=== PATIENT | female | born 1940 | race Caucasian/White ===

== ENCOUNTER 2019-06-07 16:46 | Inpatient (IN) | payer MEDICARE ==
[~2019-06-07] VITALS: Ht 172.7 cm; Wt 62.8 kg
[2019-06-07] MEDS ORDERED: METHYL SALICYLATE/MENTHOL TOPICAL OINTMENT 57GM TUBE. TP PRN (17:00)
[2019-06-07] MEDS ORDERED: MAG HYDROX/AL HYDROX/SIMETH 30 ML ORAL.SUSP PO PRN (17:00)
[2019-06-07] MEDS ORDERED: MAGNESIUM HYDROXIDE 2,400 MG/30 ML ORAL.SUSP. PO PRN ×2 (17:00→17:30)
[2019-06-07] MEDS ORDERED: ACETAMINOPHEN 325 MG TABLET PO PRN (17:00)
[2019-06-07] MEDS ORDERED: MINERAL OIL TP PRN (17:30)
[2019-06-07] MEDS ORDERED: HYDROPHIL PETROLAT TP PRN (17:30)
[2019-06-07] MEDS ORDERED: CALCIUM POLYCARBOPHIL 625 MG TABLET PO PRN (17:30)
[2019-06-07] MEDS ORDERED: DIMENHYDRINATE 50 MG PO PRN (17:30)
[2019-06-07] MEDS ORDERED: DOCU-109 PO (17:33)
[2019-06-07] MEDS ORDERED: DIME50TA10 PO (17:33)
[2019-06-07] MEDS ORDERED: MECL25TA3 PO (17:33)
[2019-06-07] MEDS ORDERED: SERT25TA PO (17:33)
[2019-06-07] MEDS ORDERED: ACET-704 PO (17:33)
[2019-06-07] MEDS ORDERED: NAPR-634 PO (17:33)
[2019-06-07] MEDS ORDERED: LORA10TA3 PO (17:33)
[2019-06-07] MEDS ORDERED: ACET325T9 PO (17:33)
[2019-06-07] MEDS ORDERED: MELA3TAB56 PO (17:33)
[2019-06-07] MEDS ORDERED: MAGN400O7 PO (17:33)
[2019-06-07] MEDS ORDERED: CYAN10002 IJ (17:33)
[2019-06-07] MEDS ORDERED: LISI-334 PO (17:33)
[2019-06-07] MEDS ORDERED: CALC625T61 PO (17:33)
[2019-06-07] MEDS ORDERED: MINE50OI TP (17:37)
[2019-06-07 17:48] VITALS: BP 124/77
[2019-06-07] MEDS ORDERED: MECLIZINE 12.5 MG TABLET. PO PRN (18:15)
[2019-06-07] MEDS ORDERED: NAPROXEN 250 MG TABLET PO PRN (18:15)
[2019-06-07] MEDS: ACETAMINOPHEN/CODEINE 300/30MG TABLET PO PRN (18:16)
--- NOTE | 2019-06-07 19:55 | PDOC ---
Exam Note: Michele Note: Please also refer to the separate dictated note~for this date of service dictated separately. Discussed the patient with Nursing staff reviewed the chart.~Reviewed interim history and current functioning. Reviewed vital signs,~Labs/ Radiology~and current medications noted below. Continue current treatment with the changes noted in the dictated addendum note Assessment: Vital Signs/I&O: Vital Signs Date Time Temp Pulse Resp B/P (MAP) Pulse Ox O2 Delivery O2 Flow Rate FiO2 06/07/19 19:16 91 Room Air 06/07/19 18:16 16 06/07/19 17:48 97.6 81 124/77 (93) Current Medications: Meds: Current Medications Medications (Trade) Dose Ordered Sig/Alexa Route PRN Reason Start Time Stop Time Status Last Admin Dose Admin Acetaminophen/ Codeine Phosphate (Tylenol #3) 1 tab PRN Q6HRS PRN PO extreme pain 06/07/19 17:30 06/07/19 18:16 I have reviewed the current psychotropics carefully including drug interactions. Risk benefit ratio favors no change other than as noted in my dictated progress note. MERY PHAM MD Jun 07, 2019 19:55
[2019-06-07] MEDS: SERTRALINE 25 MG TABLET. PO SCH (20:49)
[2019-06-08 06:02] VITALS: BP 135/81
[2019-06-08 06:31] LABS: BASO # 0.1 x10^3/uL (0.0-0.2); BASO % 2 % (0-3); EOS # 0.1 x10^3/uL (0.0-0.7); EOS % 4 % (0-3); HEMATOCRIT 39.2 % (36.0-47.0); HEMOGLOBIN 12.8 g/dL (12.0-15.5); LYMPH # 1.3 x10^3/uL (1.0-4.8); LYMPH % 33 % (24-48); MEAN CORPUSCULAR HEMOGLOBIN 28 pg (25-35); MEAN CORPUSCULAR HGB CONC 33 g/dL (31-37); MEAN CORPUSCULAR VOLUME 86 fL (79-100); MONO # 0.3 x10^3/uL (0.0-1.1); MONO % 9 % (0-9); NEUT # 2.1 x10^3uL (1.8-7.7); NEUT % 53 % (31-73); PLATELET COUNT 177 x10^3/uL (140-400); RED BLOOD COUNT 4.57 x10^6/uL (3.50-5.40); RED CELL DISTRIBUTION WIDTH 17.9 % (11.5-14.5); WHITE BLOOD COUNT 3.9 x10^3/uL (4.0-11.0)
[2019-06-08 06:45] LABS: ALBUMIN 2.9 g/dL (3.4-5.0); CALCIUM 8.8 mg/dL (8.5-10.1); CREATININE 0.6 mg/dL (0.6-1.0); GFR 96.2; POTASSIUM 4.2 mmol/L (3.5-5.1); TOTAL BILIRUBIN 0.5 mg/dL (0.2-1.0); TOTAL PROTEIN 5.8 g/dL (6.4-8.2)
[2019-06-08] MEDS: DOCUSATE SODIUM 100 MG CAPSULE PO SCH (07:52)
[2019-06-08] MEDS: LISINOPRIL 20 MG TABLET PO SCH (07:52)
[2019-06-08] MEDS: CETIRIZINE HCL 10 MG TABLET PO SCH (07:52)
[2019-06-08] MEDS: ACETAMINOPHEN/CODEINE 300/30MG TABLET PO PRN (11:32)
[2019-06-08 16:04] VITALS: BP 97/67
[2019-06-08 17:07] LABS: THYROXINE 6.5 ug/dL (4.5-12.0)
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
[2019-06-08 19:32] LABS: THYROID STIM HORMONE (TSH) 1.432 uIU/mL (0.358-3.740)
--- NOTE | 2019-06-08 20:21 | PDOC ---
Exam Note: Michele Note: Please also refer to the separate dictated note~for this date of service dictated separately.~Patient seen individually. Discussed the patient with Nursing staff reviewed the chart.~Reviewed interim history and current functioning. Reviewed vital signs,~Labs/ Radiology~and current medications noted below. Continue current treatment with the changes noted in the dictated addendum note Assessment: Vital Signs/I&O: Vital Signs Date Time Temp Pulse Resp B/P (MAP) Pulse Ox O2 Delivery O2 Flow Rate FiO2 06/08/19 16:04 98.8 81 18 97/67 (77) 95 06/07/19 19:16 Room Air I & O 06/07/19 06/07/19 06/08/19 15:00 23:00 07:00 Intake Total 360 ml Balance 360 ml Labs: Laboratory Tests Test 06/08/19 06:22 White Blood Count 3.9 x10^3/uL (4.0-11.0) L Red Blood Count 4.57 x10^6/uL (3.50-5.40) Hemoglobin 12.8 g/dL (12.0-15.5) Hematocrit 39.2 % (36.0-47.0) Mean Corpuscular Volume 86 fL (79-100) Mean Corpuscular Hemoglobin 28 pg (25-35) Mean Corpuscular Hemoglobin Concent 33 g/dL (31-37) Red Cell Distribution Width 17.9 % (11.5-14.5) H Platelet Count 177 x10^3/uL (140-400) Neutrophils (%) (Auto) 53 % (31-73) Lymphocytes (%) (Auto) 33 % (24-48) Monocytes (%) (Auto) 9 % (0-9) Eosinophils (%) (Auto) 4 % (0-3) H Basophils (%) (Auto) 2 % (0-3) Neutrophils # (Auto) 2.1 x10^3uL (1.8-7.7) Lymphocytes # (Auto) 1.3 x10^3/uL (1.0-4.8) Monocytes # (Auto) 0.3 x10^3/uL (0.0-1.1) Eosinophils # (Auto) 0.1 x10^3/uL (0.0-0.7) Basophils # (Auto) 0.1 x10^3/uL (0.0-0.2) Sodium Level 138 mmol/L (136-145) Potassium Level 4.2 mmol/L (3.5-5.1) Chloride Level 103 mmol/L (98-107) Carbon Dioxide Level 28 mmol/L (21-32) Anion Gap 7 (6-14) Blood Urea Nitrogen 11 mg/dL (7-20) Creatinine 0.6 mg/dL (0.6-1.0) Estimated GFR (Cockcroft-Gault) 96.2 BUN/Creatinine Ratio 18 (6-20) Glucose Level 95 mg/dL (70-99) Calcium Level 8.8 mg/dL (8.5-10.1) Magnesium Level 2.0 mg/dL (1.8-2.4) Iron Level 86 ug/dL (50-170) Total Iron Binding Capacity 233 ug/dL (250-450) L Iron Saturation 37 % (15-34) H Total Bilirubin 0.5 mg/dL (0.2-1.0) Aspartate Amino Transferase (AST) 13 U/L (15-37) L Alanine Aminotransferase (ALT) 13 U/L (14-59) L Alkaline Phosphatase 52 U/L (46-116) Creatine Kinase < 15 U/L (26-192) L Total Protein 5.8 g/dL (6.4-8.2) L Albumin 2.9 g/dL (3.4-5.0) L Albumin/Globulin Ratio 1.0 (1.0-1.7) Triglycerides Level 49 mg/dL (0-150) Cholesterol Level 188 mg/dL (0-200) LDL Cholesterol, Calculated 117 mg/dL (0-100) H VLDL Cholesterol, Calculated 9 mg/dL (0-40) Non-HDL Cholesterol Calculated 126 mg/dL (0-129) HDL Cholesterol 62 mg/dL (40-60) H Cholesterol/HDL Ratio 3.0 Vitamin B12 Level 414 pg/mL (247-911) 25-Hydroxy Vitamin D Total 30.5 ng/mL (30-100) Thyroid Stimulating Hormone (TSH) 1.432 uIU/mL (0.358-3.740) Thyroxine (T4) 6.5 ug/dL (4.5-12.0) Total Triiodothyronine (TT3) 86 ng/dL (71-180) Treponema pallidum Antibody Nonreactive (Nonreactive) Current Medications: Meds: Current Medications Medications (Trade) Dose Ordered Sig/Alexa Route PRN Reason Start Time Stop Time Status Last Admin Dose Admin Docusate Sodium (Colace) 100 mg DAILY PO 06/08/19 09:00 06/08/19 07:52 Lisinopril (Prinivil) 20 mg DAILY PO 06/08/19 09:00 06/08/19 07:52 Sertraline HCl (Zoloft) 25 mg QHS PO 06/07/19 21:00 06/07/19 20:49 Cetirizine HCl (ZyrTEC) 10 mg DAILY PO 06/08/19 09:00 06/08/19 07:52 I have reviewed the current psychotropics carefully including drug interactions. Risk benefit ratio favors no change other than as noted in my dictated progress note. Diagnosis: Problems: (1) Major depressive disorder with psychotic features (2) Mild cognitive impairment (3) Anxiety disorder, unspecified (4) Impulse control disorder, unspecified MERY PHAM MD Jun 08, 2019 20:21
[2019-06-08] MEDS: SERTRALINE 25 MG TABLET. PO SCH (20:30)
--- NOTE | 2019-06-09 00:11 | PN ---
DATE: 06/08/2019 PSYCHIATRIC PROGRESS NOTE This note covers elements not covered in my initial note 06/08/2019. SUBJECTIVE: I met with the patient in the evening and staffed at a treatment team meeting with the entire team in the morning. The patient slept for 8-1/4 hours previous night. She has been withdrawn, isolative, spends much time in her room. Received Tylenol No. 3 at 11:30 a.m. and played "possum" according to nursing staff all day. Clarification on her drug allergies as noted in my initial evaluation and none of the allergies confirmed from his psychotropic standpoint. REVIEW OF SYSTEMS: Positive for tiredness. She is not very interactive, refusing to talk to me, a little different than yesterday. No CV, , pulmonary, eye system symptoms on review. MENTAL STATUS EXAM: Oriented to herself and situation. Speech has some latency, coherent, often responses monosyllabic. Abstraction fair, computation impaired, language function intact. Mood and affect remains depressed. LABORATORY DATA: Reviewed. IMPRESSION: Major depressive disorder with psychotic features; anxiety disorder, unspecified; mild cognitive impairment, rule out bipolar disorder, depressed. PLAN: Continue to observe baseline, then adjust psychotropics as clinically indicated. Rest unchanged for now including melatonin __. MAN Nohemy PHAM MD DR: LARY/janeth JOB#: [id number] / [id number]
[2019-06-09 06:05] VITALS: BP 163/97
[2019-06-09] MEDS: CETIRIZINE HCL 10 MG TABLET PO SCH (09:59)
[2019-06-09] MEDS: LISINOPRIL 20 MG TABLET PO SCH (09:59)
[2019-06-09] MEDS: DOCUSATE SODIUM 100 MG CAPSULE PO SCH (09:59)
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
[2019-06-09 16:21] VITALS: BP 112/73
[2019-06-09] MEDS: SERTRALINE 25 MG TABLET. PO SCH (20:09)
--- NOTE | 2019-06-09 20:36 | PDOC ---
Exam Note: Michele Note: Please also refer to the separate dictated note~for this date of service dictated separately.~Patient seen individually. Discussed the patient with Nursing staff reviewed the chart.~Reviewed interim history and current functioning. Reviewed vital signs,~Labs/ Radiology~and current medications noted below. Continue current treatment with the changes noted in the dictated addendum note Assessment: Vital Signs/I&O: Vital Signs Date Time Temp Pulse Resp B/P (MAP) Pulse Ox O2 Delivery O2 Flow Rate FiO2 06/09/19 16:21 98.4 74 16 112/73 (86) 95 Room Air I & O 06/08/19 06/08/19 06/09/19 15:00 23:00 07:00 Intake Total 360 ml 600 ml Balance 360 ml 600 ml Current Medications: I have reviewed the current psychotropics carefully including drug interactions. Risk benefit ratio favors no change other than as noted in my dictated progress note. Diagnosis: Problems: (1) Mild cognitive impairment (2) Anxiety disorder, unspecified (3) Major depressive disorder with psychotic features (4) Impulse control disorder, unspecified MERY PHAM MD Jun 09, 2019 20:36
[2019-06-10 05:59] VITALS: BP 126/83
[2019-06-10] MEDS: LISINOPRIL 20 MG TABLET PO SCH (08:18)
[2019-06-10] MEDS: CETIRIZINE HCL 10 MG TABLET PO SCH (08:18)
[2019-06-10] MEDS: DOCUSATE SODIUM 100 MG CAPSULE PO SCH (08:18)
[2019-06-10] MEDS: ACETAMINOPHEN 325 MG TABLET PO PRN (08:56)
[2019-06-10 15:16] LABS: BACTERIA,URINE MANY /HPF (0-FEW); BILIRUBIN,URINE NEG (NEG); CLARITY,URINE HAZY; COLOR,URINE YELLOW; GLUCOSE,URINE NEG (NEG); NITRITE,URINE NEG (NEG); RBC,URINE OCC /HPF (0-2); SQUAMOUS EPITHELIAL CELL,UR FEW /LPF; UROBILINOGEN,URINE 1 mg/dL (0.2 mg/dL)
[2019-06-10 15:58] VITALS: BP 102/68
[2019-06-10] MEDS: SERTRALINE 50 MG TABLET. PO SCH (20:21)
--- NOTE | 2019-06-10 20:40 | PDOC ---
Exam Note: Michele Note: Please also refer to the separate dictated note~for this date of service dictated separately.~Patient seen individually. Discussed the patient with Nursing staff reviewed the chart.~Reviewed interim history and current functioning. Reviewed vital signs,~Labs/ Radiology~and current medications noted below. Continue current treatment with the changes noted in the dictated addendum note Assessment: Vital Signs/I&O: Vital Signs Date Time Temp Pulse Resp B/P (MAP) Pulse Ox O2 Delivery O2 Flow Rate FiO2 06/10/19 15:58 97.5 78 16 102/68 (79) 94 06/10/19 05:59 Room Air I & O 06/09/19 06/09/19 06/10/19 15:00 23:00 07:00 Intake Total 240 ml 0 ml Balance 240 ml 0 ml Labs: Laboratory Tests Test 06/10/19 14:12 Urine Collection Type Unknown Urine Color Yellow Urine Clarity Hazy Urine pH 6.0 Urine Specific Wendell 1.025 Urine Protein Neg (NEG-TRACE) Urine Glucose (UA) Neg mg/dL (NEG) Urine Ketones (Stick) Neg mg/dL (NEG) Urine Blood Neg (NEG) Urine Nitrite Neg (NEG) Urine Bilirubin Neg (NEG) Urine Urobilinogen Dipstick 1 mg/dL (0.2 mg/dL) Urine Leukocyte Esterase Mod (NEG) Urine RBC Occ /HPF (0-2) Urine WBC 11-20 /HPF (0-4) Urine Squamous Epithelial Cells Few /LPF Urine Transitional Epithelial Cells Few /LPF Urine Bacteria Many /HPF (0-FEW) Urine Mucus Slight /LPF Current Medications: Meds: Current Medications Medications (Trade) Dose Ordered Sig/Alexa Route PRN Reason Start Time Stop Time Status Last Admin Dose Admin Sertraline HCl (Zoloft) 50 mg QHS PO 06/10/19 21:00 06/12/19 21:00 06/10/19 20:21 Olanzapine (ZyPREXA ZYDIS) 2.5 mg PRN Q2HR PRN PO PSYCHOSIS 06/10/19 14:00 06/10/19 14:05 I have reviewed the current psychotropics carefully including drug interactions. Risk benefit ratio favors no change other than as noted in my dictated progress note. Diagnosis: Problems: (1) Mild cognitive impairment (2) Anxiety disorder, unspecified (3) Major depressive disorder with psychotic features (4) Impulse control disorder, unspecified MERY PHAM MD Jun 10, 2019 20:40
[2019-06-11 05:48] VITALS: BP 107/71
[2019-06-11] MEDS: CETIRIZINE HCL 10 MG TABLET PO SCH (09:41)
[2019-06-11] MEDS: LISINOPRIL 20 MG TABLET PO SCH (09:41)
[2019-06-11] MEDS: DOCUSATE SODIUM 100 MG CAPSULE PO SCH (09:42)
[2019-06-11 15:38] VITALS: BP 127/75
--- NOTE | 2019-06-11 19:57 | PDOC ---
Exam Note: Michele Note: Please also refer to the separate dictated note~for this date of service dictated separately.~Patient seen individually. Discussed the patient with Nursing staff reviewed the chart.~Reviewed interim history and current functioning. Reviewed vital signs,~Labs/ Radiology~and current medications noted below. Continue current treatment with the changes noted in the dictated addendum note Assessment: Vital Signs/I&O: Vital Signs Date Time Temp Pulse Resp B/P (MAP) Pulse Ox O2 Delivery O2 Flow Rate FiO2 06/11/19 15:38 97.9 80 16 127/75 (92) 95 06/10/19 05:59 Room Air I & O 06/10/19 06/10/19 06/11/19 15:00 23:00 07:00 Intake Total 480 ml 420 ml Balance 480 ml 420 ml Current Medications: Meds: Current Medications Medications (Trade) Dose Ordered Sig/Alexa Route PRN Reason Start Time Stop Time Status Last Admin Dose Admin Sertraline HCl (Zoloft) 50 mg QHS PO 06/10/19 21:00 06/12/19 21:00 06/10/19 20:21 I have reviewed the current psychotropics carefully including drug interactions. Risk benefit ratio favors no change other than as noted in my dictated progress note. Diagnosis: Problems: (1) Mild cognitive impairment (2) Anxiety disorder, unspecified (3) Major depressive disorder with psychotic features (4) Impulse control disorder, unspecified MERY PHAM MD Jun 11, 2019 19:57
[2019-06-11] MEDS: risperiDONE 0.25 MG TABLET. PO SCH (20:44)
[2019-06-11] MEDS: SERTRALINE 50 MG TABLET. PO SCH (20:44)
--- NOTE | 2019-06-11 21:21 | PN ---
DATE: 06/09/2019 PSYCHIATRIC PROGRESS NOTE This late entry 06/09/2019 covers elements not covered in my initial note. SUBJECTIVE: I met with the patient in the evening. Per MANUELA Orellana, the patient slept 9-3/4 hours previous night. She is spending much time in her room, comes out to eat, then back in her room. We are still waiting for UA, rule out urinary tract infection. REVIEW OF SYSTEMS: No CV, , pulmonary, eye, ENT system symptoms on review. MENTAL STATUS EXAM: Oriented to herself and situation. Speech is minimal. Abstraction fair, computation impaired, language function intact. She is somewhat paranoid. Mood and affect is depressed. LABORATORY DATA: Reviewed. IMPRESSION: Major depressive disorder, recurrent with psychotic features; psychotic disorder, unspecified. Rest unchanged. PLAN: Increase Zoloft to 50 mg a day after she has been on 25 for 2 days and 2 days after that to 75 mg a day. Await urine C and S. Continue rest unchanged for now. MERY PHAM MD DR: LARY/janeth JOB#: [id number] / [id number]
[2019-06-12 06:06] VITALS: BP 113/74
[2019-06-12] MEDS: LISINOPRIL 20 MG TABLET PO SCH (09:00)
[2019-06-12] MEDS: CETIRIZINE HCL 10 MG TABLET PO SCH (09:00)
[2019-06-12] MEDS: DOCUSATE SODIUM 100 MG CAPSULE PO SCH (09:00)
[2019-06-12 15:52] VITALS: BP 129/85
--- NOTE | 2019-06-12 18:05 | PN ---
DATE: 06/10/2019 PSYCHIATRIC PROGRESS NOTE This late entry 06/10/2019 covers elements not covered in my initial note. SUBJECTIVE: I met with the patient in the evening. The patient slept 8-1/4 hours previous night. She has been somewhat withdrawn and isolative. Does have a UTI reflex to culture. Defer to Dr. Lisa. Reasonably alert, oriented. REVIEW OF SYSTEMS: No CV, , pulmonary, eye, ENT system symptoms on review. Reliability poor at times. MENTAL STATUS EXAM: Oriented reasonably. Speech is coherent, has some latency. Abstraction fair, computation impaired, language function intact. Mood and affect somewhat depressed, at times irritable. LABORATORY DATA: Reviewed. IMPRESSION: Unchanged from initial note. PLAN: No change from initial note. Treat the UTI as indicated. Increase Zoloft gradually. We will go up to 75 mg a day on 06/10/2019 and we will then increase thereafter. MAN Nohemy PHAM MD DR: LARY/janeth JOB#: [id number] / [id number]
--- NOTE | 2019-06-12 18:17 | PN ---
DATE: 06/11/2019 This late entry 06/11/2019 covers elements not covered in my initial note. SUBJECTIVE: I met with the patient in the evening. The patient slept 8-1/2 hours previous night. She refused to talk previous evening. During the day on 06/11/2019, most of her verbal responses have been nonverbal and this was evident as I met with her at length individually in the evening and then later as I was leaving the unit, she was wheeling herself down the hallway. In the hallway and I met with her again, but both times, she would not interact, verbally, but only nonverbal, but better than before. Much of responses are yes and no, somewhat paranoid. REVIEW OF SYSTEMS: Ambulation impaired, in wheelchair. No CV, , pulmonary, eye, ENT system symptoms on review. MENTAL STATUS EXAM: Oriented to herself, situation. Speech is often responses monosyllabic. Abstraction fair, computation impaired. Language function intact. Attention span short. Mood and affect withdrawn. LABORATORY DATA: Reviewed. IMPRESSION: Unchanged from initial note. Major depressive disorder, recurrent with psychotic features. Rest unchanged. PLAN: Continue current psychotropics. Zoloft increasing gradually. Start Risperdal 0.25 mg at bedtime. Melatonin, continue 3 mg at bedtime p.r.n. MAN Nohemy PHAM MD DR: LARY/janeth JOB#: [id number] / [id number]
--- NOTE | 2019-06-12 19:51 | PDOC ---
Exam Note: Michele Note: Please also refer to the separate dictated note~for this date of service dictated separately.~Patient seen individually. Discussed the patient with Nursing staff reviewed the chart.~Reviewed interim history and current functioning. Reviewed vital signs,~Labs/ Radiology~and current medications noted below. Continue current treatment with the changes noted in the dictated addendum note Assessment: Vital Signs/I&O: Vital Signs Date Time Temp Pulse Resp B/P (MAP) Pulse Ox O2 Delivery O2 Flow Rate FiO2 06/12/19 15:52 97.8 74 16 129/85 (100) 93 06/12/19 06:06 Room Air I & O 06/11/19 06/11/19 06/12/19 14:59 22:59 06:59 Intake Total 300 ml 480 ml Balance 300 ml 480 ml Current Medications: Meds: Current Medications Medications (Trade) Dose Ordered Sig/Alexa Route PRN Reason Start Time Stop Time Status Last Admin Dose Admin Risperidone (RisperDAL) 0.25 mg QHS PO 06/11/19 21:00 06/11/19 20:44 I have reviewed the current psychotropics carefully including drug interactions. Risk benefit ratio favors no change other than as noted in my dictated progress note. Diagnosis: Problems: (1) Mild cognitive impairment (2) Anxiety disorder, unspecified (3) Major depressive disorder with psychotic features (4) Impulse control disorder, unspecified MERY PHAM MD Jun 12, 2019 19:51
[2019-06-12] MEDS: risperiDONE 0.25 MG TABLET. PO SCH (20:52)
[2019-06-12] MEDS: SERTRALINE 50 MG TABLET. PO SCH (20:52)
[2019-06-13 06:18] VITALS: BP 128/80
[2019-06-13] MEDS: CETIRIZINE HCL 10 MG TABLET PO SCH (07:55)
[2019-06-13] MEDS: LISINOPRIL 20 MG TABLET PO SCH (07:55)
[2019-06-13] MEDS: DOCUSATE SODIUM 100 MG CAPSULE PO SCH (07:55)
[2019-06-13 16:05] VITALS: BP 122/79
--- NOTE | 2019-06-13 19:52 | PDOC ---
Exam Note: Michele Note: Please also refer to the separate dictated note~for this date of service dictated separately.~Patient seen individually. Discussed the patient with Nursing staff reviewed the chart.~Reviewed interim history and current functioning. Reviewed vital signs,~Labs/ Radiology~and current medications noted below. Continue current treatment with the changes noted in the dictated addendum note Assessment: Vital Signs/I&O: Vital Signs Date Time Temp Pulse Resp B/P (MAP) Pulse Ox O2 Delivery O2 Flow Rate FiO2 06/13/19 16:05 97.6 76 16 122/79 (93) 94 Room Air I & O 06/12/19 06/12/19 06/13/19 15:00 23:00 07:00 Intake Total 600 ml 100 ml Balance 600 ml 100 ml Current Medications: I have reviewed the current psychotropics carefully including drug interactions. Risk benefit ratio favors no change other than as noted in my dictated progress note. Diagnosis: Problems: (1) Mild cognitive impairment (2) Anxiety disorder, unspecified (3) Major depressive disorder with psychotic features (4) Impulse control disorder, unspecified MERY PHAM MD Jun 13, 2019 19:52
[2019-06-13] MEDS: risperiDONE 0.25 MG TABLET. PO SCH (20:10)
[2019-06-13] MEDS: SERTRALINE 25 MG TABLET. PO SCH (20:12)
--- NOTE | 2019-06-13 23:38 | PN ---
DATE: 06/12/2019 PSYCHIATRIC PROGRESS NOTE This late entry 06/12/2019 covers the elements not covered in my initial note. SUBJECTIVE: I met with the patient in the evening of 06/12/2019. Per MANUELA Dillard, the patient slept 6-3/4 hours previous night. She has been withdrawn, not very verbal. Urine C and S is awaited. Takes her medications whole. She did come to the day room, which is an improvement for her, less paranoid, since starting on Risperdal 0.25 mg at bedtime the previous evening. REVIEW OF SYSTEMS: Ambulation impaired, in wheelchair. No CV, , pulmonary, eye, ENT system symptoms on review. Reliability poor, not very verbal. She is more oriented than it appears on the surface because of her being nonverbal. MENTAL STATUS EXAM: Oriented as noted, abstraction fair, computation impaired, difficult to assess. Language function intact. Mood and affect withdrawn, less paranoid. LABORATORY DATA: Reviewed. IMPRESSION: Unchanged from initial note. PLAN: No change from initial note. MERY PHAM MD DR: LARY/janeth JOB#: [id number] / [id number]
[2019-06-14 06:31] VITALS: BP 133/87
[2019-06-14] MEDS: LISINOPRIL 20 MG TABLET PO SCH (08:51)
[2019-06-14] MEDS: CETIRIZINE HCL 10 MG TABLET PO SCH (08:51)
[2019-06-14] MEDS: DOCUSATE SODIUM 100 MG CAPSULE PO SCH (08:51)
[2019-06-14 10:12] LABS: BASO # 0.1 x10^3/uL (0.0-0.2); BASO % 1 % (0-3); EOS # 0.1 x10^3/uL (0.0-0.7); EOS % 3 % (0-3); HEMATOCRIT 38.2 % (36.0-47.0); HEMOGLOBIN 12.4 g/dL (12.0-15.5); LYMPH # 0.9 x10^3/uL (1.0-4.8); LYMPH % 22 % (24-48); MEAN CORPUSCULAR HEMOGLOBIN 28 pg (25-35); MEAN CORPUSCULAR HGB CONC 32 g/dL (31-37); MEAN CORPUSCULAR VOLUME 86 fL (79-100); MONO # 0.3 x10^3/uL (0.0-1.1); MONO % 8 % (0-9); NEUT # 2.8 x10^3uL (1.8-7.7); NEUT % 66 % (31-73); PLATELET COUNT 202 x10^3/uL (140-400); RED BLOOD COUNT 4.42 x10^6/uL (3.50-5.40); RED CELL DISTRIBUTION WIDTH 17.8 % (11.5-14.5); WHITE BLOOD COUNT 4.2 x10^3/uL (4.0-11.0)
[2019-06-14 10:34] LABS: ALBUMIN 2.9 g/dL (3.4-5.0); CALCIUM 8.9 mg/dL (8.5-10.1); CREATININE 0.7 mg/dL (0.6-1.0); GFR 80.5; POTASSIUM 4.2 mmol/L (3.5-5.1); TOTAL BILIRUBIN 0.4 mg/dL (0.2-1.0); TOTAL PROTEIN 5.8 g/dL (6.4-8.2)
[2019-06-14 14:01] LABS: % BANDS 2 % (0-9); % BASOS 1 % (0-3); % EOS 5 % (0-5); % LYMPHS 21 % (24-48); % MONOS 6 % (0-10); % SEGS 65 % (35-66); NUCLEATED RBC 1
[2019-06-14 14:03] LABS: PLT ESTIMATE ADEQUATE (ADEQUATE)
[2019-06-14 15:42] VITALS: BP 106/72
--- NOTE | 2019-06-14 19:51 | PDOC ---
Exam Note: Michele Note: Please also refer to the separate dictated note~for this date of service dictated separately.~Patient seen individually. Discussed the patient with Nursing staff reviewed the chart.~Reviewed interim history and current functioning. Reviewed vital signs,~Labs/ Radiology~and current medications noted below. Continue current treatment with the changes noted in the dictated addendum note Assessment: Vital Signs/I&O: Vital Signs Date Time Temp Pulse Resp B/P (MAP) Pulse Ox O2 Delivery O2 Flow Rate FiO2 06/14/19 15:42 97.8 79 18 106/72 (83) 96 06/13/19 16:05 Room Air I & O 06/13/19 06/13/19 06/14/19 15:00 23:00 07:00 Intake Total 720 ml 360 ml Balance 720 ml 360 ml Labs: Laboratory Tests Test 06/14/19 09:52 White Blood Count 4.2 x10^3/uL (4.0-11.0) Red Blood Count 4.42 x10^6/uL (3.50-5.40) Hemoglobin 12.4 g/dL (12.0-15.5) Hematocrit 38.2 % (36.0-47.0) Mean Corpuscular Volume 86 fL (79-100) Mean Corpuscular Hemoglobin 28 pg (25-35) Mean Corpuscular Hemoglobin Concent 32 g/dL (31-37) Red Cell Distribution Width 17.8 % (11.5-14.5) H Platelet Count 202 x10^3/uL (140-400) Neutrophils (%) (Auto) 66 % (31-73) Lymphocytes (%) (Auto) 22 % (24-48) L Monocytes (%) (Auto) 8 % (0-9) Eosinophils (%) (Auto) 3 % (0-3) Basophils (%) (Auto) 1 % (0-3) Neutrophils # (Auto) 2.8 x10^3uL (1.8-7.7) Lymphocytes # (Auto) 0.9 x10^3/uL (1.0-4.8) L Monocytes # (Auto) 0.3 x10^3/uL (0.0-1.1) Eosinophils # (Auto) 0.1 x10^3/uL (0.0-0.7) Basophils # (Auto) 0.1 x10^3/uL (0.0-0.2) Segmented Neutrophils % 65 % (35-66) Band Neutrophils % 2 % (0-9) Lymphocytes % 21 % (24-48) L Monocytes % 6 % (0-10) Eosinophils % 5 % (0-5) Basophils % 1 % (0-3) Nucleated Red Blood Cells 1 Platelet Estimate Adequate (ADEQUATE) Basophilic Stippling Present Sodium Level 139 mmol/L (136-145) Potassium Level 4.2 mmol/L (3.5-5.1) Chloride Level 104 mmol/L (98-107) Carbon Dioxide Level 28 mmol/L (21-32) Anion Gap 7 (6-14) Blood Urea Nitrogen 11 mg/dL (7-20) Creatinine 0.7 mg/dL (0.6-1.0) Estimated GFR (Cockcroft-Gault) 80.5 BUN/Creatinine Ratio 16 (6-20) Glucose Level 119 mg/dL (70-99) H Calcium Level 8.9 mg/dL (8.5-10.1) Total Bilirubin 0.4 mg/dL (0.2-1.0) Aspartate Amino Transferase (AST) 12 U/L (15-37) L Alanine Aminotransferase (ALT) 12 U/L (14-59) L Alkaline Phosphatase 58 U/L (46-116) Total Protein 5.8 g/dL (6.4-8.2) L Albumin 2.9 g/dL (3.4-5.0) L Albumin/Globulin Ratio 1.0 (1.0-1.7) Current Medications: Meds: Current Medications Medications (Trade) Dose Ordered Sig/Alexa Route PRN Reason Start Time Stop Time Status Last Admin Dose Admin Sertraline HCl (Zoloft) 75 mg QHS PO 06/13/19 21:00 06/13/19 20:12 I have reviewed the current psychotropics carefully including drug interactions. Risk benefit ratio favors no change other than as noted in my dictated progress note. Diagnosis: Problems: (1) Mild cognitive impairment (2) Anxiety disorder, unspecified (3) Major depressive disorder with psychotic features (4) Impulse control disorder, unspecified MERY PHAM MD Jun 14, 2019 19:51
[2019-06-14] MEDS: SERTRALINE 25 MG TABLET. PO SCH (19:55)
[2019-06-14] MEDS: risperiDONE 0.25 MG TABLET. PO SCH (19:55)
--- NOTE | 2019-06-14 20:25 | PN ---
DATE: 06/13/2019 PSYCHIATRIC PROGRESS NOTE This late entry 06/13/2019 covers the elements not covered in my initial note. SUBJECTIVE: I met with the patient in the evening of 06/13/2019 and staffed at a treatment team meeting with the entire team in the morning. The patient's appetite is 80%, sleeping about 8 hours average, remains somewhat withdrawn, depressed, not very verbally interactive. UA has reflex to culture. REVIEW OF SYSTEMS: Ambulation impaired, in wheelchair. No CV, , pulmonary, eye system symptoms on review. MENTAL STATUS EXAM: Oriented to herself and situation. Speech has some latency, coherent. Abstraction fair, computation impaired, not very verbal. No active suicidal or homicidal ideation, but remains paranoid. LABORATORY DATA: Reviewed. IMPRESSION: Unchanged from initial note. PLAN: Continue current psychotropics including Risperdal, Zoloft, Zyprexa p.r.n., melatonin. Rest unchanged for now. MERY PHAM MD DR: LARY/janeth JOB#: [id number] / [id number]
[2019-06-15] MEDS: MELATONIN 3 MG TABLET PO PRN (00:42)
[2019-06-15 05:47] VITALS: BP 98/66
[2019-06-15] MEDS: CETIRIZINE HCL 10 MG TABLET PO SCH (08:45)
[2019-06-15] MEDS: DOCUSATE SODIUM 100 MG CAPSULE PO SCH (08:45)
[2019-06-15] MEDS: LISINOPRIL 20 MG TABLET PO SCH (08:46)
--- NOTE | 2019-06-15 10:40 | PN ---
DATE: 06/14/2019 PSYCHIATRIC PROGRESS NOTE This late entry 06/14/2019 covers the elements not covered in my initial note. SUBJECTIVE: I met with the patient in the evening. Per MANUELA Edwards, the patient slept 8-1/2 hours previous night. She is oriented to herself and situation. Slept 10 in the morning, a little irritable in the morning, but later she was doing much better. REVIEW OF SYSTEMS: Positive for impaired ambulation in wheelchair. No CV, , pulmonary, eye system symptoms on review. MENTAL STATUS EXAM: Oriented to herself and situation. Speech has some latency, often responses monosyllabic, little more forthcoming than a few days back. Abstraction fair, computation impaired, language function intact. Mood and affect still withdrawn. LABORATORY DATA: Reviewed. IMPRESSION: Unchanged from initial note. PLAN: No change from initial note. MAN Nohemy PHAM MD DR: LARY/janeth JOB#: [id number] / [id number]
--- NOTE | 2019-06-15 10:41 | PN ---
DATE: 06/15/2019 PSYCHIATRIC PROGRESS NOTE This note covers the elements not covered in my initial note, 06/15. SUBJECTIVE: I met with the patient in the morning. The patient slept 6 hours previous night. Per nursing report, the patient remains somewhat withdrawn, but no overt agitation, aggression, still depressed, but denies active suicidal ideation. REVIEW OF SYSTEMS: Ambulation impaired, in wheelchair. No CV, , pulmonary, eye systems symptoms on review. MENTAL STATUS EXAM: Oriented to herself and situation. Speech has some latency, coherent, often responses monosyllabic. Abstraction fair, computation impaired, language function intact, attention span short. Mood and affect withdrawn. LABORATORY DATA: Reviewed. IMPRESSION: Unchanged from initial note. PLAN: No change from initial note. MAN Nohemy PHAM MD DR: LARY/janeth JOB#: [id number] / [id number]
[2019-06-15 16:14] VITALS: BP 94/62
[2019-06-15] MEDS: SERTRALINE 25 MG TABLET. PO SCH (19:34)
[2019-06-15] MEDS: risperiDONE 0.25 MG TABLET. PO SCH (19:34)
--- NOTE | 2019-06-15 20:37 | PDOC ---
Exam Note: Michele Note: Please also refer to the separate dictated note~for this date of service dictated separately.~Patient seen individually. Discussed the patient with Nursing staff reviewed the chart.~Reviewed interim history and current functioning. Reviewed vital signs,~Labs/ Radiology~and current medications noted below. Continue current treatment with the changes noted in the dictated addendum note Assessment: Vital Signs/I&O: Vital Signs Date Time Temp Pulse Resp B/P (MAP) Pulse Ox O2 Delivery O2 Flow Rate FiO2 06/15/19 16:14 98.7 81 16 94/62 (73) 96 06/13/19 16:05 Room Air I & O 06/14/19 06/14/19 06/15/19 15:00 23:00 07:00 Intake Total 960 ml 600 ml Balance 960 ml 600 ml Current Medications: I have reviewed the current psychotropics carefully including drug interactions. Risk benefit ratio favors no change other than as noted in my dictated progress note. Diagnosis: Problems: (1) Mild cognitive impairment (2) Anxiety disorder, unspecified (3) Major depressive disorder with psychotic features (4) Impulse control disorder, unspecified MERY PHAM MD Jun 15, 2019 20:37
[2019-06-16 06:27] VITALS: BP 117/78
[2019-06-16] MEDS: LISINOPRIL 20 MG TABLET PO SCH (09:20)
[2019-06-16] MEDS: CETIRIZINE HCL 10 MG TABLET PO SCH (09:20)
[2019-06-16] MEDS: DOCUSATE SODIUM 100 MG CAPSULE PO SCH (09:20)
[2019-06-16 15:34] VITALS: BP 123/78
--- NOTE | 2019-06-16 20:05 | PDOC ---
Exam Note: Michele Note: Please also refer to the separate dictated note~for this date of service dictated separately.~Patient seen individually. Discussed the patient with Nursing staff reviewed the chart.~Reviewed interim history and current functioning. Reviewed vital signs,~Labs/ Radiology~and current medications noted below. Continue current treatment with the changes noted in the dictated addendum note Assessment: Vital Signs/I&O: Vital Signs Date Time Temp Pulse Resp B/P (MAP) Pulse Ox O2 Delivery O2 Flow Rate FiO2 06/16/19 15:34 97.7 72 16 123/78 (93) 93 06/13/19 16:05 Room Air I & O 06/15/19 06/15/19 06/16/19 14:59 22:59 06:59 Intake Total 480 ml 600 ml Balance 480 ml 600 ml Current Medications: I have reviewed the current psychotropics carefully including drug interactions. Risk benefit ratio favors no change other than as noted in my dictated progress note. Diagnosis: Problems: (1) Mild cognitive impairment (2) Anxiety disorder, unspecified (3) Major depressive disorder with psychotic features (4) Impulse control disorder, unspecified MERY PHAM MD Jun 16, 2019 20:05
[2019-06-16] MEDS: risperiDONE 0.25 MG TABLET. PO SCH (20:07)
[2019-06-16] MEDS: SERTRALINE 25 MG TABLET. PO SCH (20:07)
[2019-06-17 05:58] VITALS: BP 111/71
[2019-06-17] MEDS: LISINOPRIL 20 MG TABLET PO SCH (08:34)
[2019-06-17] MEDS: CETIRIZINE HCL 10 MG TABLET PO SCH (08:34)
[2019-06-17] MEDS: DOCUSATE SODIUM 100 MG CAPSULE PO SCH (08:34)
[2019-06-17] MEDS ORDERED: KETOCONAZOLE 2% SHAMPOO 120ML BOTTLE. TP PRN (15:15)
[2019-06-17 15:49] VITALS: BP 103/66
[2019-06-17] MEDS: risperiDONE 0.25 MG TABLET. PO SCH (19:38)
[2019-06-17] MEDS: MELATONIN 3 MG TABLET PO PRN (19:38)
[2019-06-17] MEDS: SERTRALINE 25 MG TABLET. PO SCH (19:38)
--- NOTE | 2019-06-17 21:53 | PDOC ---
Exam Note: Michele Note: Please also refer to the separate dictated note~for this date of service dictated separately.~Patient seen individually. Discussed the patient with Nursing staff reviewed the chart.~Reviewed interim history and current functioning. Reviewed vital signs,~Labs/ Radiology~and current medications noted below. Continue current treatment with the changes noted in the dictated addendum note Assessment: Vital Signs/I&O: Vital Signs Date Time Temp Pulse Resp B/P (MAP) Pulse Ox O2 Delivery O2 Flow Rate FiO2 06/17/19 15:49 98.6 84 16 103/66 (78) 95 06/13/19 16:05 Room Air I & O 06/16/19 06/16/19 06/17/19 15:00 23:00 07:00 Intake Total 240 ml 720 ml Balance 240 ml 720 ml Current Medications: I have reviewed the current psychotropics carefully including drug interactions. Risk benefit ratio favors no change other than as noted in my dictated progress note. Diagnosis: Problems: (1) Mild cognitive impairment (2) Anxiety disorder, unspecified (3) Major depressive disorder with psychotic features (4) Impulse control disorder, unspecified MERY PHAM MD Jun 17, 2019 21:53
[2019-06-18 05:57] VITALS: BP 100/61
[2019-06-18] MEDS: CETIRIZINE HCL 10 MG TABLET PO SCH (08:16)
[2019-06-18] MEDS: DOCUSATE SODIUM 100 MG CAPSULE PO SCH (08:17)
[2019-06-18] MEDS: LISINOPRIL 20 MG TABLET PO SCH (08:17)
[2019-06-18 16:10] VITALS: BP 107/75
--- NOTE | 2019-06-18 20:35 | PDOC ---
Exam Note: Michele Note: Please also refer to the separate dictated note~for this date of service dictated separately.~Patient seen individually. Discussed the patient with Nursing staff reviewed the chart.~Reviewed interim history and current functioning. Reviewed vital signs,~Labs/ Radiology~and current medications noted below. Continue current treatment with the changes noted in the dictated addendum note Assessment: Vital Signs/I&O: Vital Signs Date Time Temp Pulse Resp B/P (MAP) Pulse Ox O2 Delivery O2 Flow Rate FiO2 06/18/19 16:10 97.8 78 18 107/75 (86) 94 06/13/19 16:05 Room Air I & O 06/17/19 06/17/19 06/18/19 14:59 22:59 06:59 Intake Total 720 ml 120 ml Balance 720 ml 120 ml Current Medications: I have reviewed the current psychotropics carefully including drug interactions. Risk benefit ratio favors no change other than as noted in my dictated progress note. Diagnosis: Problems: (1) Mild cognitive impairment (2) Anxiety disorder, unspecified (3) Major depressive disorder with psychotic features (4) Impulse control disorder, unspecified MERY PHAM MD Jun 18, 2019 20:35
[2019-06-18] MEDS: SERTRALINE 25 MG TABLET. PO SCH (20:37)
[2019-06-18] MEDS: risperiDONE 0.25 MG TABLET. PO SCH (20:37)
--- NOTE | 2019-06-18 21:52 | PN ---
DATE: 06/16/2019 PSYCHIATRIC PROGRESS NOTE This late entry 06/16/2019 covers elements not covered in my initial note. SUBJECTIVE: I met with the patient individually. The patient slept 6 hours previous night. At times, she gets irritable, was trying to hit one of the nursing aides, has been in the day room. Received Zyprexa x 1 p.r.n. for her agitation as noted. REVIEW OF SYSTEMS: Ambulation impaired, in wheelchair. No CV, , pulmonary, eye system symptoms on review. MENTAL STATUS EXAMINATION: Oriented to herself and situation. Speech has some latency, often responses monosyllabic, but better than before. Abstraction fair, computation impaired. Language function intact. Mood and affect somewhat depressed, paranoid. LABORATORY DATA: Reviewed. IMPRESSION: Major depressive disorder with psychotic features; anxiety disorder, unspecified; mild cognitive impairment. Rest unchanged. PLAN: Continue current psychotropics used the Zyprexa p.r.n. Maintain melatonin 3 mg at bedtime p.r.n., Zoloft 75 mg a day, Risperdal 0.25 mg at bedtime. Adjust further as clinically indicated. MAN Nohemy PHAM MD DR: LARY/janeth JOB#: [id number] / [id number]
--- NOTE | 2019-06-18 22:27 | PN ---
DATE: 06/17/2019 PSYCHIATRIC PROGRESS NOTE This late entry 06/17 covers elements not covered in my initial note. SUBJECTIVE: I met with the patient individually. Overall, the patient still remains withdrawn, isolative, slept 8 hours previous night, but does come out more to the group area. REVIEW OF SYSTEMS: Ambulation impaired, in wheelchair. No CV, , pulmonary, eye system symptoms on review. MENTAL STATUS EXAM: Reasonably oriented. Speech moderate latency, often responses monosyllabic. Abstraction fair, computation impaired, language function intact. Mood and affect still depressed, withdrawn, but less so than before. LABORATORY DATA: Reviewed. IMPRESSION: Unchanged from initial note. PLAN: No change from initial note. MERY PHAM MD DR: LARY/janeth JOB#: [id number] / [id number]
[2019-06-19 06:14] VITALS: BP 139/88
[2019-06-19] MEDS: DOCUSATE SODIUM 100 MG CAPSULE PO SCH (09:01)
[2019-06-19] MEDS: LISINOPRIL 20 MG TABLET PO SCH (09:02)
[2019-06-19] MEDS: CETIRIZINE HCL 10 MG TABLET PO SCH (09:02)
--- NOTE | 2019-06-19 12:28 | TX PLAN ---
Interdisciplinary Tx Plan Admission Information Jun 07, 2019 at 16:46 Legal Status (on Admission): Voluntary DPOA/Guardian Name: Dion Rivera Contact Other Contact Name: [facility] Other Contact Verified Code Status: DNR Allergies: Coded Allergies: azithromycin (Verified Allergy, Severe, 06/07/19) dexamethasone (Verified Allergy, Severe, 06/07/19) erythromycin base (Verified Allergy, Severe, 06/07/19) Estimated Length of Stay: 14 Diagnoses Primary Diagnosis: MDD Reasons for Admission: Agitated, Depressed, Isolating, Poor impulse control Problem in Patient's Words: She's got a lot of emotional baggage and has run from it for years. I'm not sure if some of this is just her new attention-seeking norm. Additional Admission Comments: According to the intake, pt wants to , depressed, withdrawn, not speaking to others, isolates, throwing slippers at staff, edwige staff with call light, pulled the fire alarm and decor off the cartwright. Problems Active Problems: Withdrawn to self Potential UA -- sent to culture Agitation Confused Inactive Problems: Medication compliant Pt Strengths/Limitations Ability for [place]: Poor Cognitive Functioning/Ability: Fair Communication Skills/Ability: Fair Financial Resources: Fair Insight/Judgement: Poor Intellectual Ability: Poor Physical Health: Poor Social Skills: Poor Stability in Family: Fair Stability in School/Work: Poor Verbal Skills: Fair Discharge Criteria Discharge Criteria: No need for close observ., Adequate arrangements @DC, Improved behavior, Improved mood/thought Preliminary Discharge Plan Preliminary DC Plan: Current Living Arrange. Special Precautions Fall Risk: Moderate Initial D/C Plan After assessment, pt will return to LTC @ [facility] Identified Discharge Needs: Psychiatry follow-up Currently Utilized Resources Currently Utilized Resources/P: see PCP at LTC Referrals Community Resources: psychiatric services Identified Problems/Hx/Goals Objectives/Short-Term Goals Short Term Goals: Symp. Depression, Improved Social Skills, Medication Stabilization, Promote Coping Skill History Vocational History: Pt son reports that pt lived off welfare for many years. For a short period of time, pt was able to hold a job down with the [employer]. "I'm not sure what happened there". Education: Graduated HS (12th grade) and attended 2 years of college in [place]. Never completed higher education degree; left to live in [place]. Treatment Plan Explained Patient/Page Technician had this treatment plan explained to him/her as indicated by the signature below and has been given the opportunity to ask questions and make suggestions: Date: Patient/Page Technician Signature: Team Members Signatures Team Members Psychiatrist Date Nursing Date [facility] Date Activity Therapy Date Other Date Other Date GUICHOPRINCE Jun 19, 2019 12:28
[2019-06-19 16:10] VITALS: BP 143/83
[2019-06-19] MEDS: risperiDONE 0.25 MG TABLET. PO SCH (19:41)
[2019-06-19] MEDS: SERTRALINE 25 MG TABLET. PO SCH (19:41)
[2019-06-19] MEDS: ACETAMINOPHEN/CODEINE 300/30MG TABLET PO PRN (19:43)
--- NOTE | 2019-06-19 20:54 | PDOC ---
Exam Note: Michele Note: Please also refer to the separate dictated note~for this date of service dictated separately.~Patient seen individually. Discussed the patient with Nursing staff reviewed the chart.~Reviewed interim history and current functioning. Reviewed vital signs,~Labs/ Radiology~and current medications noted below. Continue current treatment with the changes noted in the dictated addendum note Assessment: Vital Signs/I&O: Vital Signs Date Time Temp Pulse Resp B/P (MAP) Pulse Ox O2 Delivery O2 Flow Rate FiO2 06/19/19 19:43 20 94 Room Air 06/19/19 16:10 97.6 79 143/83 (103) I & O 06/18/19 06/18/19 06/19/19 15:00 23:00 07:00 Intake Total 480 ml 480 ml Balance 480 ml 480 ml Current Medications: I have reviewed the current psychotropics carefully including drug interactions. Risk benefit ratio favors no change other than as noted in my dictated progress note. Diagnosis: Problems: (1) Mild cognitive impairment (2) Anxiety disorder, unspecified (3) Major depressive disorder with psychotic features (4) Impulse control disorder, unspecified MERY PHAM MD Jun 19, 2019 20:54
--- NOTE | 2019-06-20 00:17 | PN ---
DATE: 06/18/2019 PSYCHIATRIC PROGRESS NOTE This late entry 06/18/2019 covers elements not covered in my initial note. SUBJECTIVE: I met with the patient at length individually. She remains somewhat withdrawn, but a little more verbally interactive, which is an improvement. REVIEW OF SYSTEMS: Ambulation impaired, in wheelchair. No CV, , pulmonary, eye system symptoms on review. MENTAL STATUS EXAM: Oriented to herself and situation. Speech has some latency, often responses monosyllabic. Abstraction fair, computation impaired, language function intact. Mood and affect somewhat depressed, withdrawn, but improved. LABORATORY DATA: Reviewed. IMPRESSION: Unchanged from initial note. PLAN: No change from initial note. MAN Nohemy PHAM MD DR: LARY/janeth JOB#: [id number] / [id number]
[2019-06-20 05:44] VITALS: BP 125/78
[2019-06-20] MEDS: LISINOPRIL 20 MG TABLET PO SCH (08:08)
[2019-06-20] MEDS: DOCUSATE SODIUM 100 MG CAPSULE PO SCH (08:08)
[2019-06-20] MEDS: CETIRIZINE HCL 10 MG TABLET PO SCH (08:08)
[2019-06-20 15:48] VITALS: BP 112/72
[2019-06-20] MEDS: risperiDONE 0.25 MG TABLET. PO SCH (19:59)
[2019-06-20] MEDS: SERTRALINE 25 MG TABLET. PO SCH (19:59)
--- NOTE | 2019-06-20 20:36 | PDOC ---
Exam Note: Michele Note: Please also refer to the separate dictated note~for this date of service dictated separately.~Patient seen individually. Discussed the patient with Nursing staff reviewed the chart.~Reviewed interim history and current functioning. Reviewed vital signs,~Labs/ Radiology~and current medications noted below. Continue current treatment with the changes noted in the dictated addendum note Assessment: Vital Signs/I&O: Vital Signs Date Time Temp Pulse Resp B/P (MAP) Pulse Ox O2 Delivery O2 Flow Rate FiO2 06/20/19 15:48 98.1 79 16 112/72 (85) 94 06/19/19 20:43 Room Air I & O 06/19/19 06/19/19 06/20/19 15:00 23:00 07:00 Intake Total 600 ml 580 ml Balance 600 ml 580 ml Current Medications: I have reviewed the current psychotropics carefully including drug interactions. Risk benefit ratio favors no change other than as noted in my dictated progress note. Diagnosis: Problems: (1) Mild cognitive impairment (2) Anxiety disorder, unspecified (3) Major depressive disorder with psychotic features (4) Impulse control disorder, unspecified MERY PHAM MD Jun 20, 2019 20:36
--- NOTE | 2019-06-20 21:03 | PN ---
DATE: 06/19/2019 PSYCHIATRIC PROGRESS NOTE This late entry of 06/19/2019 covers the elements not covered in my initial note. SUBJECTIVE: I met with the patient in the evening. Per MANUELA Rubio, the patient slept 6-1/4 hours previous night. She remains withdrawn, isolative, little more verbal than before. Nursing staff remarked that the son was standing outside and she responded back "looks can be deceiving". At times, she was exit seeking, but redirectable. Very pleasant, interactive as I met with her in the evening. REVIEW OF SYSTEMS: Ambulation impaired, in wheelchair. No CV, , pulmonary, eye system symptoms on review. MENTAL STATUS EXAM: Oriented to herself and situation. Speech little more verbal, forthcoming. Abstraction fair, computation impaired, language function intact. Mood and affect remains depressed, withdrawn, but improved. LABORATORY DATA: Reviewed. IMPRESSION: Unchanged from initial note. PLAN: No change from initial note. MERY PHAM MD DR: LARY/janeth JOB#: [id number] / [id number]
[2019-06-21 06:03] VITALS: BP 126/80
[2019-06-21] MEDS: CETIRIZINE HCL 10 MG TABLET PO SCH (08:40)
[2019-06-21] MEDS: DOCUSATE SODIUM 100 MG CAPSULE PO SCH (08:41)
[2019-06-21] MEDS: LISINOPRIL 20 MG TABLET PO SCH (08:41)
[2019-06-21] MEDS: ACETAMINOPHEN/CODEINE 300/30MG TABLET PO PRN (13:19)
[2019-06-21 15:43] VITALS: BP 127/82
[2019-06-21] MEDS: risperiDONE 0.25 MG TABLET. PO SCH (20:08)
[2019-06-21] MEDS: SERTRALINE 25 MG TABLET. PO SCH (20:09)
--- NOTE | 2019-06-21 23:19 | PN ---
DATE: 06/20/2019 PSYCHIATRIC PROGRESS NOTE. This late entry of 06/20/2019 covers the elements not covered in my initial note. SUBJECTIVE: I met with the patient in the evening. Per MANUELA Orellana, the patient slept 6 hours previous night. The patient complained of severe headaches, 10 on the scale of 0-10. We will defer to Dr. Lisa, constantly wanting some pain medication. Nevertheless, she has been more verbal, interactive, though she is noted to be "snarky". She has come out of the day room, which is an improvement, less isolated. REVIEW OF SYSTEMS: Positive for headaches, impaired ambulation, in wheelchair. No CV, , pulmonary, eye system symptoms on review. MENTAL STATUS EXAM: Reasonably oriented. Speech is coherent, abstraction fair, computation impaired, language function intact. Mood and affect is improved, less depressed. No suicidal ideation. LABORATORY DATA: Reviewed. IMPRESSION: Unchanged from initial note. PLAN: No change from initial note. MERY PHAM MD DR: LARY/janeth JOB#: [id number] / [id number]
--- NOTE | 2019-06-21 23:36 | PN ---
DATE: 06/21/2019 SUBJECTIVE: The patient was seen today, met with the staff, chart reviewed and also covering for Dr. Rivera. The patient constantly is seeking medications including asking for Tylenol No. 3 for pain. The patient continues to isolate herself, increased anxiety, multiple somatic complaints. OBSERVATION: VITAL SIGNS: Temperature 97.9, blood pressure 126/80, pulse 79. GENERAL: Slept about 7 hours last night. CURRENT MEDICATIONS: The patient's current medications include Zoloft 75 mg at night, Risperdal 0.25 mg at night, melatonin 3 mg at night p.r.n., also olanzapine 2.5 mg q. 2 hours p.r.n. The patient is not having any side effects from her medications. LABORATORY DATA: The patient's lab reviewed. ASSESSMENT: Major depressive disorder, recurrent; mild cognitive disorder and anxiety disorder, unspecified. PLAN: Continue with the current treatment plan. LENGTH OF STAY: 4-5 days. MAX VILLEGAS MD DR: FRANKLIN/nts JOB#: [id number] / [id number]
[2019-06-22 06:06] VITALS: BP 123/84
[2019-06-22 06:46] LABS: BASO % 1 % (0-3); EOS # 0.2 x10^3/uL (0.0-0.7); EOS % 6 % (0-3); HEMATOCRIT 37.2 % (36.0-47.0); LYMPH # 1.3 x10^3/uL (1.0-4.8); LYMPH % 32 % (24-48); MEAN CORPUSCULAR HEMOGLOBIN 28 pg (25-35); MEAN CORPUSCULAR HGB CONC 32 g/dL (31-37); MEAN CORPUSCULAR VOLUME 85 fL (79-100); MONO # 0.4 x10^3/uL (0.0-1.1); MONO % 9 % (0-9); NEUT # 2.2 x10^3uL (1.8-7.7); NEUT % 52 % (31-73); PLATELET COUNT 203 x10^3/uL (140-400); RED BLOOD COUNT 4.36 x10^6/uL (3.50-5.40); WHITE BLOOD COUNT 4.2 x10^3/uL (4.0-11.0)
[2019-06-22 07:00] LABS: ALBUMIN 2.9 g/dL (3.4-5.0); ALBUMIN/GLOBULIN RATIO 0.9 (1.0-1.7); CALCIUM 8.9 mg/dL (8.5-10.1); CREATININE 0.6 mg/dL (0.6-1.0); GFR 96.2; POTASSIUM 4.4 mmol/L (3.5-5.1); TOTAL BILIRUBIN 0.4 mg/dL (0.2-1.0); TOTAL PROTEIN 6.1 g/dL (6.4-8.2)
[2019-06-22] MEDS: LISINOPRIL 20 MG TABLET PO SCH (08:16)
[2019-06-22] MEDS: DOCUSATE SODIUM 100 MG CAPSULE PO SCH (08:16)
[2019-06-22] MEDS: CETIRIZINE HCL 10 MG TABLET PO SCH (08:16)
[2019-06-22 08:53] LABS: ANISOCYTOSIS SLIGHT; OVALOCYTES OCC; PLT ESTIMATE ADEQUATE (ADEQUATE); POLYCHROMASIA PRESENT
[2019-06-22 08:54] LABS: TEAR DROP CELLS OCC
[2019-06-22 08:56] LABS: TOXIC GRANULATION PRESENT
[2019-06-22 08:59] LABS: MICROCYTOSIS SLIGHT
[2019-06-22 16:20] VITALS: BP 114/74
[2019-06-22] MEDS: ACETAMINOPHEN 325 MG TABLET PO PRN (16:34)
--- NOTE | 2019-06-22 20:12 | PN ---
DATE: 06/22/2019 SUBJECTIVE: The patient was seen today, met with the staff, chart reviewed. The patient continues to show increased anxiety, restlessness, pacing on a wheelchair, also exit-seeking behaviors. The patient also constantly is seeking medications including wanting to be on Tylenol No. 3 for pain. The patient continues to have high level of anxiety and multiple somatic complaints. OBSERVATION: VITAL SIGNS: Temperature 97.8, blood pressure 123/84, pulse 70, respiration 18, O2 sat 94%. GENERAL: Slept about 8 hours last night. LABORATORY DATA: The patient's lab reviewed. MEDICATIONS: The patient's current medications include Zoloft 75 mg at night, Risperdal 0.25 mg at night and melatonin 3 mg at night. The patient is not having any side effects. ASSESSMENT: Major depression, recurrent, moderate without psychotic features; anxiety disorder and mild cognitive disorder. MAX VILLEGAS MD DR: FRANKLIN/janeth JOB#: [id number] / [id number]
[2019-06-22] MEDS: SERTRALINE 25 MG TABLET. PO SCH (20:45)
[2019-06-22] MEDS: risperiDONE 0.25 MG TABLET. PO SCH (20:45)
[2019-06-23 07:18] VITALS: BP 156/81
[2019-06-23] MEDS: CETIRIZINE HCL 10 MG TABLET PO SCH (08:07)
[2019-06-23] MEDS: LISINOPRIL 20 MG TABLET PO SCH (08:07)
[2019-06-23] MEDS: DOCUSATE SODIUM 100 MG CAPSULE PO SCH (08:07)
[2019-06-23 16:26] VITALS: BP 105/71
[2019-06-23] MEDS: risperiDONE 0.25 MG TABLET. PO SCH (20:29)
[2019-06-23] MEDS: SERTRALINE 25 MG TABLET. PO SCH (20:29)
--- NOTE | 2019-06-24 00:43 | PN ---
DATE: 06/23/2019 SUBJECTIVE: The patient was seen today, met with the staff, chart reviewed. Staff reports no major problems. The patient still complains of feeling tired, have problems with mobility. Currently, uses wheelchair. Still has period of increased agitation and restlessness. The patient states she is getting bored. She wants to keep busy. OBSERVATION: VITAL SIGNS: Temperature 96.9, blood pressure 156/81, pulse 73, respirations 16, O2 sat 94%. GENERAL: Slept about 7 hours last night. CURRENT MEDICATIONS: The patient is currently on Zoloft 75 mg at night, Risperdal 0.25 mg at night and melatonin 3 mg at night. The patient denies of any side effects. LABORATORY DATA: The patient's lab reviewed. ASSESSMENT: 1. Major depression, recurrent, moderate without psychotic features. 2. Anxiety disorder, unspecified and mild cognitive disorder. PLAN: To continue with the treatment. LENGTH OF STAY: 3-4 days. MAX VILLEGAS MD DR: FRANKLIN/janeth JOB#: [id number] / [id number]
[2019-06-24 06:48] VITALS: BP 115/70
[2019-06-24] MEDS: LISINOPRIL 20 MG TABLET PO SCH (08:43)
[2019-06-24] MEDS: DOCUSATE SODIUM 100 MG CAPSULE PO SCH (08:43)
[2019-06-24] MEDS: CETIRIZINE HCL 10 MG TABLET PO SCH (08:43)
[2019-06-24 15:57] VITALS: BP 108/72
[2019-06-24] MEDS: risperiDONE 0.25 MG TABLET. PO SCH (21:02)
[2019-06-24] MEDS: ACETAMINOPHEN 325 MG TABLET PO PRN (21:02)
[2019-06-24] MEDS: SERTRALINE 25 MG TABLET. PO SCH (21:02)
--- NOTE | 2019-06-24 23:29 | PN ---
DATE: 06/24/2019 SUBJECTIVE: The patient was seen today, met with the staff, chart reviewed. The patient uses wheelchair. The patient has not had any falls here. Her behavior is appropriate, pleasant and staff reports no major behavior problems. The patient still has periods where she gets restless and increased agitation. The patient also complains of feeling cold. OBSERVATION: VITAL SIGNS: Temperature 97.6, blood pressure 108/72, pulse 73, respirations 18, O2 sat 93%. The patient slept about 7 hours last night. The patient's appetite is fair. MEDICATIONS: The patient's current medications include Zoloft 75 mg at night, Risperdal 0.25 mg at night and melatonin 3 mg at night. The patient denies of any side effects. LABORATORY DATA: The patient's lab reviewed. ASSESSMENT: 1. Major depression, recurrent, moderate without psychotic features. 2. Anxiety disorder, unspecified. 3. Mild cognitive disorder. PLAN: To continue with the treatment. LENGTH OF STAY: 3-4 days. MAX VILLEGAS MD DR: FRANKLIN/janeth JOB#: [id number] / [id number]
[2019-06-25 06:29] VITALS: BP 119/63
[2019-06-25] MEDS: CETIRIZINE HCL 10 MG TABLET PO SCH (08:13)
[2019-06-25] MEDS: DOCUSATE SODIUM 100 MG CAPSULE PO SCH (08:13)
[2019-06-25] MEDS: LISINOPRIL 20 MG TABLET PO SCH (08:14)
[2019-06-25 15:35] VITALS: BP 112/69
[2019-06-25] MEDS: risperiDONE 0.25 MG TABLET. PO SCH (20:08)
[2019-06-25] MEDS: SERTRALINE 25 MG TABLET. PO SCH (20:08)
[2019-06-25] MEDS: BACLOFEN 10 MG TABLET PO SCH (20:09)
--- NOTE | 2019-06-25 22:56 | PN ---
DATE: 06/25/2019 SUBJECTIVE: The patient was seen today, met with the staff, chart reviewed. The patient has not presented with any major behavior problems, but continues to be restless and periods of agitation. OBSERVATION: VITAL SIGNS: Temperature 97.6, blood pressure 108/72, pulse 73, respiratory rate 18, O2 sat 93%. GENERAL: Slept fairly well. The patient is not having any physical complaints. MEDICATIONS: The patient's current medications include Zoloft 75 mg at night, Risperdal 0.25 mg at night and melatonin 3 mg at night. LABORATORY DATA: The patient's lab reviewed. ASSESSMENT: 1. Major depression, recurrent, moderate without psychotic features. 2. Anxiety disorder, unspecified. 3. Mild cognitive disorder. PLAN: To continue with the treatment. LENGTH OF STAY: 3-4 days. MAX VILLEGAS MD DR: FRANKLIN/janeth JOB#: [id number] / [id number]
[2019-06-26 05:59] VITALS: BP 137/87
[2019-06-26] MEDS: LISINOPRIL 20 MG TABLET PO SCH (08:39)
[2019-06-26] MEDS: DOCUSATE SODIUM 100 MG CAPSULE PO SCH (08:40)
[2019-06-26] MEDS: BACLOFEN 10 MG TABLET PO SCH ×2 (08:40→19:53)
[2019-06-26] MEDS: CETIRIZINE HCL 10 MG TABLET PO SCH (08:40)
[2019-06-26 15:40] VITALS: BP 113/73
[2019-06-26] MEDS: risperiDONE 0.25 MG TABLET. PO SCH (19:52)
[2019-06-26] MEDS: SERTRALINE 25 MG TABLET. PO SCH (19:53)
--- NOTE | 2019-06-27 01:23 | PN ---
DATE: 06/26/2019 SUBJECTIVE: The patient was seen today, met with the staff, chart reviewed. The patient continued to be restless, pacing, but no major behavior problems. OBSERVATION: VITAL SIGNS: Temperature 98.2, blood pressure 137/81, pulse is 71, respirations 18, O2 sat 93%. GENERAL: Slept about 7 hours last night. The patient is not having any side effects. LABORATORY DATA: The patient's lab reviewed. MEDICATIONS: The patient is currently on Zoloft 75 mg daily, Risperdal 0.25 mg at night and melatonin 3 mg at night. ASSESSMENT: 1. Major depressive disorder, recurrent, moderate to severe, without psychotic features. 2. Anxiety disorder, unspecified. 3. Mild cognitive disorder. PLAN: To continue with the treatment. LENGTH OF STAY: 3-4 days. MAX VILLEGAS MD DR: FRANKLIN/janeth JOB#: [id number] / [id number]
[2019-06-27 06:04] VITALS: BP 118/75
[2019-06-27] MEDS: DOCUSATE SODIUM 100 MG CAPSULE PO SCH (08:13)
[2019-06-27] MEDS: CETIRIZINE HCL 10 MG TABLET PO SCH (08:13)
[2019-06-27] MEDS: LISINOPRIL 20 MG TABLET PO SCH (08:13)
[2019-06-27] MEDS: BACLOFEN 10 MG TABLET PO SCH ×2 (08:13→20:02)
[2019-06-27 15:58] VITALS: BP 132/79
[2019-06-27] MEDS: risperiDONE 0.25 MG TABLET. PO SCH (20:01)
[2019-06-27] MEDS: SERTRALINE 25 MG TABLET. PO SCH (20:02)
--- NOTE | 2019-06-28 03:36 | PN ---
DATE: 06/27/2019 SUBJECTIVE: The patient was seen today, met with the staff, chart reviewed. Staff reports no major behavior problems today. OBSERVATION: VITAL SIGNS: Temperature 97.7, blood pressure 118/75, pulse 72, respirations 18, O2 sat 94%. GENERAL: Slept about 6 hours last night. The patient's appetite is fair. The patient is not having any side effects to medications. ASSESSMENT: 1. Major depressive disorder, recurrent, moderate to severe, without psychotic features. 2. Anxiety disorder, unspecified. 3. Mild cognitive disorder. PLAN: To continue with the treatment. The patient is planned for discharge on 06/30/2019. She will be returning to the rehab place that she came from. MAX VILLEGAS MD DR: FRANKLIN/janeth JOB#: [id number] / [id number]
[2019-06-28 06:08] VITALS: BP 114/75
[2019-06-28] MEDS: BACLOFEN 10 MG TABLET PO SCH ×2 (08:17→19:37)
[2019-06-28] MEDS: CETIRIZINE HCL 10 MG TABLET PO SCH (08:17)
[2019-06-28] MEDS: LISINOPRIL 20 MG TABLET PO SCH (08:17)
[2019-06-28] MEDS: DOCUSATE SODIUM 100 MG CAPSULE PO SCH (08:17)
[2019-06-28 09:16] LABS: BASO % 1 % (0-3); EOS # 0.2 x10^3/uL (0.0-0.7); EOS % 3 % (0-3); HEMATOCRIT 38.4 % (36.0-47.0); HEMOGLOBIN 12.5 g/dL (12.0-15.5); LYMPH % 20 % (24-48); MEAN CORPUSCULAR HEMOGLOBIN 28 pg (25-35); MEAN CORPUSCULAR HGB CONC 33 g/dL (31-37); MEAN CORPUSCULAR VOLUME 86 fL (79-100); MONO # 0.4 x10^3/uL (0.0-1.1); MONO % 7 % (0-9); NEUT # 3.6 x10^3uL (1.8-7.7); NEUT % 69 % (31-73); PLATELET COUNT 242 x10^3/uL (140-400); RED BLOOD COUNT 4.46 x10^6/uL (3.50-5.40); RED CELL DISTRIBUTION WIDTH 18.5 % (11.5-14.5); WHITE BLOOD COUNT 5.2 x10^3/uL (4.0-11.0)
[2019-06-28 09:29] LABS: ALBUMIN/GLOBULIN RATIO 0.9 (1.0-1.7); CALCIUM 8.6 mg/dL (8.5-10.1); CREATININE 0.8 mg/dL (0.6-1.0); POTASSIUM 4.1 mmol/L (3.5-5.1); TOTAL BILIRUBIN 0.4 mg/dL (0.2-1.0); TOTAL PROTEIN 6.3 g/dL (6.4-8.2)
[2019-06-28 15:44] LABS: % ATYL 9 % (0-0); % BANDS 7 % (0-9); % EOS 4 % (0-5); % LYMPHS 13 % (24-48); % MONOS 7 % (0-10); % SEGS 60 % (35-66)
[2019-06-28 15:50] LABS: PLT ESTIMATE ADEQUATE (ADEQUATE)
[2019-06-28 16:13] LABS: ANISOCYTOSIS SLIGHT
[2019-06-28 16:14] LABS: MICROCYTOSIS PRESENT
[2019-06-28 16:51] VITALS: BP 114/77
[2019-06-28] MEDS: SERTRALINE 25 MG TABLET. PO SCH (19:37)
[2019-06-28] MEDS: risperiDONE 0.25 MG TABLET. PO SCH (19:37)
[2019-06-28] MEDS ORDERED: BACL10TA PO (22:50)
[2019-06-28] MEDS ORDERED: CETI10TA16 PO (22:51)
[2019-06-28] MEDS ORDERED: KETO120S2 TP (22:54)
[2019-06-28] MEDS ORDERED: MAG30ORA2 PO (22:56)
[2019-06-28] MEDS ORDERED: MAGN2400 PO (22:56)
[2019-06-28] MEDS ORDERED: METH28OI2 TP (22:58)
[2019-06-28] MEDS ORDERED: NAPR500T8 PO (23:00)
[2019-06-28] MEDS ORDERED: OLAN5TAB5 PO (23:01)
[2019-06-28] MEDS ORDERED: RISP0.5T24 PO (23:02)
[2019-06-28] MEDS ORDERED: SERT25TA PO (23:02)
--- NOTE | 2019-06-28 23:41 | PN ---
DATE: 06/28/2019 SUBJECTIVE: The patient was seen today, met with the staff, chart reviewed. Staff reports no major behavior problems. The patient tends to isolate herself. The patient has not presented with any major behavior problems. OBSERVATION: VITAL SIGNS: Temperature 97.5, blood pressure 114/75, pulse 75, respirations 20, O2 sat 97%. Slept about 6 hours last night. The patient's appetite improved. The patient is not having any physical complaints. LABORATORY DATA: The patient's lab reviewed. MEDICATIONS: The patient's current medications include baclofen 5 mg b.i.d. for muscle spasms, Zoloft 75 mg at night, Risperdal 0.25 mg at night. She is also on olanzapine 2.5 mg q. 2 hours p.r.n., melatonin 3 mg at night. ASSESSMENT: 1. Major depressive disorder, recurrent, moderate to severe, without psychotic features. 2. Anxiety disorder, unspecified. 3. Mild cognitive disorder. PLAN: To continue with the treatment. The patient is planned for discharge on 06/30/2019. MAX VILLEGAS MD DR: FRANKLIN/janeth JOB#: [id number] / [id number]
[2019-06-29 05:55] VITALS: BP 148/81
[2019-06-29] MEDS: LISINOPRIL 20 MG TABLET PO SCH (09:11)
[2019-06-29] MEDS: CETIRIZINE HCL 10 MG TABLET PO SCH (09:11)
[2019-06-29] MEDS: DOCUSATE SODIUM 100 MG CAPSULE PO SCH (09:11)
[2019-06-29] MEDS: BACLOFEN 10 MG TABLET PO SCH ×2 (09:11→21:25)
[2019-06-29 15:57] VITALS: BP 101/61
[2019-06-29] MEDS: risperiDONE 0.25 MG TABLET. PO SCH (21:25)
[2019-06-29] MEDS: SERTRALINE 25 MG TABLET. PO SCH (21:25)
--- NOTE | 2019-06-29 23:58 | PN ---
DATE: 06/29/2019 SUBJECTIVE: The patient was seen today, met with the staff, chart reviewed. The patient continues to isolate herself, but has not presented with any major behavior problems. OBSERVATION: VITAL SIGNS: Temperature 97.9, blood pressure 148/81, pulse 85, respirations 20, O2 sat 92%. Slept about 7 hours last night. The patient is not having any side effects to medications. LABORATORY DATA: The patient's lab reviewed. MEDICATIONS: The patient's current medications include baclofen 5 mg b.i.d., Zoloft 75 mg at night, Risperdal 0.25 mg at night. The patient is also on melatonin 3 mg at night and p.r.n., olanzapine 2.5 mg q. 2 hours p.r.n. ASSESSMENT: 1. Major depressive disorder, recurrent, moderate to severe, without psychosis. 2. Anxiety disorder, unspecified. 3. Mild cognitive disorder. PLAN: To continue with the treatment. The patient is planned for discharge on 07/01/2019. MAX VILLEGAS MD DR: FRANKLIN/janeth JOB#: [id number] / [id number]
[2019-06-30 06:01] VITALS: BP 128/78
[2019-06-30] MEDS: DOCUSATE SODIUM 100 MG CAPSULE PO SCH (08:42)
[2019-06-30] MEDS: LISINOPRIL 20 MG TABLET PO SCH (08:43)
[2019-06-30] MEDS: BACLOFEN 10 MG TABLET PO SCH ×2 (08:43→19:58)
[2019-06-30] MEDS: CETIRIZINE HCL 10 MG TABLET PO SCH (08:43)
[2019-06-30 09:34] LABS: BASO % 1 % (0-3); EOS # 0.2 x10^3/uL (0.0-0.7); EOS % 3 % (0-3); HEMATOCRIT 38.8 % (36.0-47.0); HEMOGLOBIN 12.6 g/dL (12.0-15.5); LYMPH # 0.8 x10^3/uL (1.0-4.8); LYMPH % 15 % (24-48); MEAN CORPUSCULAR HEMOGLOBIN 28 pg (25-35); MEAN CORPUSCULAR HGB CONC 33 g/dL (31-37); MEAN CORPUSCULAR VOLUME 86 fL (79-100); MONO # 0.3 x10^3/uL (0.0-1.1); MONO % 6 % (0-9); NEUT # 4.4 x10^3uL (1.8-7.7); NEUT % 76 % (31-73); PLATELET COUNT 216 x10^3/uL (140-400); RED BLOOD COUNT 4.52 x10^6/uL (3.50-5.40); RED CELL DISTRIBUTION WIDTH 17.9 % (11.5-14.5); WHITE BLOOD COUNT 5.7 x10^3/uL (4.0-11.0)
[2019-06-30 09:50] LABS: ALBUMIN/GLOBULIN RATIO 0.9 (1.0-1.7); CALCIUM 8.7 mg/dL (8.5-10.1); CREATININE 0.7 mg/dL (0.6-1.0); GFR 80.5; POTASSIUM 4.2 mmol/L (3.5-5.1); TOTAL BILIRUBIN 0.5 mg/dL (0.2-1.0); TOTAL PROTEIN 6.2 g/dL (6.4-8.2)
[2019-06-30] MEDS ORDERED: PSEUDOEPHEDRINE ER 120 MG TABLET.ER. PO SCH (10:00)
[2019-06-30 15:32] VITALS: BP 117/74
[2019-06-30] MEDS: SERTRALINE 25 MG TABLET. PO SCH (19:57)
[2019-06-30] MEDS: risperiDONE 0.25 MG TABLET. PO SCH (19:57)
--- NOTE | 2019-07-01 01:02 | PN ---
DATE: 06/30/2019 SUBJECTIVE: The patient was seen today, met with the staff, chart reviewed. The patient does not show any major problems except still complains of feeling cold and feeling tired and weak, but no other behavior problems. The patient was supposed to be discharged today, but has to be canceled because of the transportation. The patient is planned for discharge on 07/03/2019. OBSERVATION: VITAL SIGNS: Temperature 96.6, blood pressure 128/78, pulse 70, respirations 16, O2 sat 93%. Slept about 7 hours last night. LABORATORY DATA: The patient's lab reviewed. MEDICATIONS: The patient's current medications include baclofen 5 mg b.i.d., Zoloft 75 mg at night, Risperdal 0.25 mg at night, melatonin 3 mg at night and also as p.r.n. and also olanzapine 2.5 mg q. 2 hours p.r.n. The patient is not having any side effects. The patient did not have any falls. ASSESSMENT: 1. Major depressive disorder, recurrent, moderate to severe without psychosis. 2. Anxiety disorder, unspecified. 3. Mild cognitive disorder. PLAN: To continue with the treatment. The patient is planned for discharge on 07/03/2019. MAX VILLEGAS MD DR: FRANKLIN/janeth JOB#: [id number] / [id number]
[2019-07-01] MEDS ORDERED: CETIRIZINE HCL 10 MG TABLET PO SCH (09:00)
[2019-07-01] MEDS: PSEUDOEPHEDRINE ER 120 MG TABLET.ER. PO SCH ×2 (09:00→20:05)
[2019-07-01] MEDS: BACLOFEN 10 MG TABLET PO SCH ×2 (09:16→20:04)
[2019-07-01] MEDS: CETIRIZINE HCL 10 MG TABLET PO SCH (09:16)
[2019-07-01] MEDS: DOCUSATE SODIUM 100 MG CAPSULE PO SCH (09:16)
[2019-07-01] MEDS: LISINOPRIL 20 MG TABLET PO SCH (09:17)
[2019-07-01 15:38] VITALS: BP 119/75
[2019-07-01] MEDS: SERTRALINE 25 MG TABLET. PO SCH (20:04)
[2019-07-01] MEDS: risperiDONE 0.25 MG TABLET. PO SCH (20:05)
--- NOTE | 2019-07-02 01:04 | PN ---
DATE: 07/01/2019 SUBJECTIVE: The patient was seen today, met with the staff, chart reviewed. The patient continues to show improvement and the patient has not presented with any major behavior problems. The patient apparently was planned for discharge and apparently that has to be changed to 07/03/2019 because of the transportation problems. OBSERVATION: VITAL SIGNS: Temperature 97.8, blood pressure 132/82, pulse 75, respirations 18, O2 sat 93%. GENERAL: Slept about 7 hours last night. The patient's appetite improved. The patient is motivated. The patient is active, participating in all the activities. LABORATORY DATA: The patient's lab reviewed. MEDICATIONS: The patient's current medications include baclofen 5 mg b.i.d., Zoloft 75 mg at night, Risperdal 0.25 mg at night, melatonin 3 mg at night, and olanzapine 2.5 mg q. 2 hours p.r.n. The patient denies of any side effects. The patient did not have any falls. ASSESSMENT: 1. Major depressive disorder, recurrent, moderate to severe, without psychosis. 2. Anxiety disorder, unspecified. 3. Mild cognitive disorder. PLAN: To continue with the treatment. The patient is planned for discharge on 07/03/2019. MAX VILLEGAS MD DR: FRANKLIN/janeth JOB#: [id number] / [id number]
[2019-07-02 05:50] VITALS: BP 136/86
[2019-07-02] MEDS: CETIRIZINE HCL 10 MG TABLET PO SCH (09:48)
[2019-07-02] MEDS: DOCUSATE SODIUM 100 MG CAPSULE PO SCH (09:48)
[2019-07-02] MEDS: BACLOFEN 10 MG TABLET PO SCH ×2 (09:49→20:47)
[2019-07-02] MEDS: LISINOPRIL 20 MG TABLET PO SCH (09:50)
[2019-07-02] MEDS: PSEUDOEPHEDRINE ER 120 MG TABLET.ER. PO SCH ×2 (09:51→20:47)
[2019-07-02 16:11] VITALS: BP 125/80
[2019-07-02] MEDS: SERTRALINE 25 MG TABLET. PO SCH (20:47)
[2019-07-02] MEDS: risperiDONE 0.25 MG TABLET. PO SCH (20:47)
[2019-07-03] MEDS ORDERED: PSEU120T58 PO ×2 (00:01)
[2019-07-03 05:29] VITALS: BP 108/69
[2019-07-03] MEDS: PSEUDOEPHEDRINE ER 120 MG TABLET.ER. PO SCH ×2 (08:03→21:34)
[2019-07-03] MEDS: LISINOPRIL 20 MG TABLET PO SCH (08:04)
[2019-07-03] MEDS: BACLOFEN 10 MG TABLET PO SCH ×2 (08:04→21:34)
[2019-07-03] MEDS: CETIRIZINE HCL 10 MG TABLET PO SCH (08:04)
[2019-07-03] MEDS: DOCUSATE SODIUM 100 MG CAPSULE PO SCH (08:04)
--- NOTE | 2019-07-03 09:59 | PN ---
DATE: 07/02/2019 SUBJECTIVE: The patient was seen today, met with the staff, chart reviewed. The patient continues to show improvement. Uses wheelchair. The patient is mostly withdrawn, tend to isolate herself, but participating in all the activities and she has not presented with any major behavior problems. OBSERVATION: VITAL SIGNS: Temperature 97.3, blood pressure 136/86, pulse 76, respirations 18, O2 sat 95%. GENERAL: Slept about 6 hours last night. The patient's appetite is fair. LABORATORY DATA: The patient's lab reviewed. MEDICATIONS: The patient's current medications include baclofen 5 mg b.i.d., Zoloft 5 mg at night, Risperdal 0.25 mg at night and melatonin 3 mg at night. The patient is also on olanzapine 2.5 mg q.2 hours p.r.n. The patient denies of any side effects. The patient did not have any falls. ASSESSMENT: 1. Major depressive disorder, recurrent, moderate to severe, without psychosis. 2. Anxiety disorder, unspecified. 3. Mild cognitive disorder. PLAN: To continue with the treatment. The patient is planned for discharge on 07/03/2019. MAX VILLEGAS MD DR: FRANKLIN/janeth JOB#: [id number] / [id number]
[2019-07-03 15:30] VITALS: BP 114/72
[2019-07-03] MEDS: SERTRALINE 25 MG TABLET. PO SCH (21:34)
[2019-07-03] MEDS: risperiDONE 0.25 MG TABLET. PO SCH (21:35)
--- NOTE | 2019-07-04 02:09 | PN ---
DATE: 07/03/2019 SUBJECTIVE: The patient was seen today, met with the staff, chart reviewed. The patient has been upset because of discharge again was canceled by the [facility] and [facility] because of the weather and they are planning to pick out hand tomorrow. The patient apparently had this experienced twice. Staff reports no major problems, but she has been isolating, feeling angry because she is not discharged to that facility. OBSERVATION: VITAL SIGNS: Temperature 98.7, blood pressure 108/69, pulse 78, respirations 20, O2 sat 95%. Slept about 9 hours last night. The patient is not having any side effects to medications. LABORATORY DATA: Reviewed. The patient is still participating in activities and not presenting with any physical complaints. ASSESSMENT: 1. Major depressive disorder, recurrent, moderate to severe, without psychosis. 2. Anxiety disorder, unspecified. 3. Mild cognitive disorder. PLAN: To continue with the current treatment including baclofen 5 mg b.i.d., Zoloft 5 mg at night, Risperdal 0.25 mg at night and melatonin 3 mg at night. MAX VILLEGAS MD DR: FRANKLIN/janeth JOB#: [id number] / [id number] GLEN
[2019-07-04 05:20] VITALS: BP 110/75
[2019-07-04 08:48] VITALS: BP 110/75
[2019-07-04] MEDS: LISINOPRIL 20 MG TABLET PO SCH (08:48)
[2019-07-04] MEDS: DOCUSATE SODIUM 100 MG CAPSULE PO SCH (08:49)
[2019-07-04] MEDS: PSEUDOEPHEDRINE ER 120 MG TABLET.ER. PO SCH (08:49)
[2019-07-04] MEDS: CETIRIZINE HCL 10 MG TABLET PO SCH (08:49)
[2019-07-04] MEDS: BACLOFEN 10 MG TABLET PO SCH (08:49)
--- NOTE | 2019-07-04 22:16 | PDOC ---
Exam Note: Michele Note: Please also refer to the separate dictated note~for this date of service dictated separately.~Patient seen individually. Discussed the patient with Nursing staff reviewed the chart.~Reviewed interim history and current functioning. Reviewed vital signs,~Labs/ Radiology~and current medications noted below. Continue current treatment with the changes noted in the dictated addendum note Assessment: Vital Signs/I&O: Vital Signs Date Time Temp Pulse Resp B/P (MAP) Pulse Ox O2 Delivery O2 Flow Rate FiO2 07/04/19 08:48 80 110/75 07/04/19 05:20 97.9 16 93 Room Air I & O 07/03/19 07/03/19 07/04/19 15:00 23:00 07:00 Intake Total 360 ml 240 ml 0 ml Balance 360 ml 240 ml 0 ml Current Medications: I have reviewed the current psychotropics carefully including drug interactions. Risk benefit ratio favors no change other than as noted in my dictated progress note. Diagnosis: Problems: (1) Mild cognitive impairment (2) Anxiety disorder, unspecified (3) Major depressive disorder with psychotic features (4) Impulse control disorder, unspecified MERY PHAM MD Jul 04, 2019 22:16
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
[2019-07-07] MEDS ORDERED: CYANOCOBALAMIN (VITAMIN B-12) 1,000 MCG/ML VIAL IM SCH (09:00)
== END 2019-07-04 10:23 | DRG 885 ==
LOC: GEROPSY 16:46
PROVIDERS: ADMIT Psychiatry & Neurology Psychiatry; ATTEND Psychiatry & Neurology Psychiatry
DX: F33.3 Major depressive disorder, recurrent, severe with psychotic symptoms (principal); E44.0 Moderate protein-calorie malnutrition; G31.84 Mild cognitive impairment of uncertain or unknown etiology; F41.9 Anxiety disorder, unspecified; F63.9 Impulse disorder, unspecified; I10 Essential (primary) hypertension; Z66 Do not resuscitate; M19.90 Unspecified osteoarthritis, unspecified site; Z96.611 Presence of right artificial shoulder joint; E53.8 Deficiency of other specified B group vitamins; F09 Unspecified mental disorder due to known physiological condition; G89.4 Chronic pain syndrome; R13.10 Dysphagia, unspecified; Z68.21 Body mass index [BMI] 21.0-21.9, adult; Z79.899 Other long term (current) drug therapy; Z99.3 Dependence on wheelchair
CPT/HCPCS: 36415; 80053; 80061; 81001; 82306; 82550; 82607; 83036; 83540; 83550; 83735; 84436; 84443; 84480; 85007; 85025; 86592; 87086; 87186; 97530